=== PATIENT | female | born 1990 | race African-American/Black ===

== ENCOUNTER 2017-12-31 01:11 | Emergency (ER) | payer SELFPAY ==
[~2017-12-31] VITALS: Ht 175.3 cm; Wt 67.1 kg
[2017-12-31 01:18] VITALS: BP 128/78
--- NOTE | 2017-12-31 01:49 | NUR ---
URINE SPECIMEN OBTAINED AND SENT TO THE LAB.
== END 2017-12-31 04:31 | disposition home or self-care (01) ==
LOC: ER 01:16
DX: R51 Headache (principal); R07.89 Other chest pain; F41.9 Anxiety disorder, unspecified; Z88.1 Allergy status to other antibiotic agents
CPT/HCPCS: 70450-TC; 84703-TC; A4606; Z7610